=== PATIENT | female | born 1985 | race Caucasian/White ===

== ENCOUNTER 2019-08-13 06:25 | Emergency (ER) | payer BC, OTHER ==
[2019-08-13 06:30] VITALS: BP 139/94; PULSE 94; TEMP 98.3; BMI 36.6
--- NOTE | 2019-08-13 06:48 | PDOC ---
History of Present Illness - General Chief Complaint: Rash Stated Complaint: RASH,ITCHING Time Seen by Provider: 08/13/19 06:27 - History of Present Illness Initial Comments: 08/13/19 06:48 This otherwise healthy 33-year-old woman history of pruritic, erythematous rash of face (widely scattered), back, anterior chest, posterior thighs and forearms. Patient was awakened during the night with itching; this continued throughout the night. Patient took ibuprofen (400 mg without relief) sometime during the night. Patient states that she finished a course of amoxicillin last week but otherwise has been on no new medication. She also denies any new supplement, vitamin or new food exposure. She states that she was trying on clothes in a store yesterday (and purchased some); no previous allergy to any fiber or textile. No recent fever or acute illness. The patient took 2 tablets of Benadryl (25 mg each) just prior to presentation Patient denies any lip/tongue swelling or sensation of difficulty swallowing or breathing Denies daily medication No known allergies Non-smoker; no daily alcohol or other recreational drug use 08/13/19 06:53 Past History - Past Medical History Allergies/Adverse Reactions: Allergies Allergy/AdvReac Type Severity Reaction Status Date / Time No Known Allergies Allergy Verified 08/13/19 06:27 Home Medications: Ambulatory Orders Methylprednisolone [Medrol Dose Bradley] 4 mg PO ASDIR #21 tablet 08/13/19 COPD: No Other medical history: DENIES - Psycho Social/Smoking Cessation Hx Smoking History: Never smoked Have you smoked in the past 12 months: No Information on smoking cessation initiated: No Hx Alcohol Use: No Drug/Substance Use Hx: No Review of Systems - Review of Systems Able to Perform ROS?: Yes Comments:: 12 point review of systems is negative except for what is noted in the history of present illness *Physical Exam - Vital Signs Last Vital Signs Temp Pulse Resp BP Pulse Ox 98.3 F 94 H 18 139/94 100 08/13/19 06:28 08/13/19 06:28 08/13/19 06:28 08/13/19 06:28 08/13/19 06:28 - Physical Exam GENERAL: Adult female, alert and oriented x3, mildly anxious but in no acute distress HEAD: Normal with no signs of trauma. EYES: PERRLA, EOMI, sclera anicteric, conjunctiva clear. ENT: Ears normal, nares patent, oropharynx clear without exudates. Moist mucous membranes. No lip/tongue/uvular edema NECK: Normal range of motion, supple without lymphadenopathy, JVD, or masses. No stridor LUNGS: Breath sounds equal, clear to auscultation bilaterally. No wheezes, and no crackles. HEART:Regular rate and rhythm, normal S1 and S2 without murmur, rub or gallop. ABDOMEN:.normal bowel sounds No guarding,tenderness or rebound.No masses No distention. NEUROLOGICAL: Cranial nerves II through XII grossly intact. Normal speech. No focal neurological deficits. SKIN: Erythematous maculopapular rash of back, anterior chest, dorsum of forearms and posterior thighs; rashes also widely scattered upper face; no lower face or significant neck rash present Medical Decision Making - Medical Decision Making This otherwise healthy 33-year-old woman presents with few hour history of pruritic rash consistent with urticaria involving torso and extremities with rare upper facial rash. No lip/tongue/uvula edema; no stridor or wheezing evident. She completed a course of amoxicillin last week; she has tolerated penicillin in the past. She thinks there may be a family history of penicillin allergy. No other new medication/supplement or vitamin/no new topical preparations. Exam as noted with rash consistent with urticaria Since there is no evidence of upper airway edema, will not start steroids at this time. The patient has arranged follow-up with Dr. Huffman in [facility] for 8:30 AM today. She should return to the ER immediately if she has any lip/tongue swelling or any difficulty swallowing/breathing Discharge - Discharge Information Problems reviewed: Yes Clinical Impression/Diagnosis: Urticaria Condition: Stable Disposition: HOME - Additional Discharge Information Prescriptions: Methylprednisolone [Medrol Dose Bradley] 4 mg PO ASDIR #21 tablet - Follow up/Referral Referrals: Neva Bell MD [Primary Care Provider] - Marquis Huffman MD [Non Staff, Medical] - - Patient Discharge Instructions Patient Printed Discharge Instructions: Ronald Additional Instructions: Continue antihistamine (Claritin/Zyrtec/Thao during the day; Benadryl at night) as needed for itching Can also use cool compresses and oatmeal baths for local relief If you have any lip/tongue or lower facial swelling or develop difficulty swallowing/breathing begin Medrol Dosepak and come to ER 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
== END 2019-08-13 06:50 | disposition home or self-care (01) ==
LOC: FER 06:25
DX: L50.9 Urticaria, unspecified (principal)
CPT/HCPCS: 99281-25

== ENCOUNTER 2019-08-14 22:02 | Inpatient (IN) | payer BC, OTHER ==
[2019-08-14 22:15] VITALS: BMI 36.6
--- NOTE | 2019-08-14 22:34 | PDOC ---
*Physical Exam - Vital Signs Last Vital Signs Temp Pulse Resp BP Pulse Ox 97.7 F 106 H 20 139/92 96 08/14/19 22:05 08/14/19 22:05 08/14/19 22:05 08/14/19 22:05 08/14/19 22:05 Medical Decision Making - Medical Decision Making 08/14/19 22:34 Patient seen by the advanced practice provider under my direct supervision. Ancillary testing reviewed as necessary. I agree with plan as outlined by the advanced practice provider. Discharge - Discharge Information Problems reviewed: Yes Clinical Impression/Diagnosis: Rash and nonspecific skin eruption - Follow up/Referral Referrals: Neva Bell MD [Primary Care Provider] - - Patient Discharge Instructions - Post Discharge Activity
--- NOTE | 2019-08-14 22:37 | PDOC ---
History of Present Illness - General Chief Complaint: Allergic Reaction Stated Complaint: RASH/SENT BY PCP Time Seen by Provider: 08/14/19 22:31 - History of Present Illness Initial Comments: 08/15/19 01:11 33-year-old female complaining of rash "urticaria "for the last 2days. patient reports that she woke up with the rash.Patient was seen by [facility] yesterday and was given benadryl. patient was also seen by [facility] yesterday at 8 am advised her that this is likely viral and to continue Benadryl. Patient was seen by PCP later in the afternoon yesterday who gave her IM Decadron. reports after getting home patient noted increased swelling to hand and puffiness to both eyes. Denies respiratory symptoms, lip swelling, uvula swelling, throat pain, hives. Patient denies nausea, vomiting, diarrhea. Patient reports that 2 days ago she was trying on clothes at a store. Denies exposure to any known allergens Patient was send by PCP for evaluation 08/15/19 01:15 Past History - Past Medical History Allergies/Adverse Reactions: Allergies Allergy/AdvReac Type Severity Reaction Status Date / Time No Known Allergies Allergy Verified 08/13/19 06:27 Home Medications: Ambulatory Orders NK [No Known Home Medication] 08/15/19 COPD: No - Psycho Social/Smoking Cessation Hx Smoking History: Never smoked Have you smoked in the past 12 months: No Hx Alcohol Use: No Drug/Substance Use Hx: No Review of Systems - Review of Systems Able to Perform ROS?: Yes Is the patient limited Irish proficient: No Integumentary: Yes: Rash *Physical Exam - Vital Signs Last Vital Signs Temp Pulse Resp BP Pulse Ox 97.7 F 106 H 20 139/92 96 08/14/19 22:05 08/14/19 22:05 08/14/19 22:05 08/14/19 22:05 08/14/19 22:05 - Physical Exam General Appearance: Yes: Appropriately Dressed HEENT: positive: Other (uvula midline, no orlal swelling) Respiratory/Chest: positive: Lungs Clear, Normal Breath Sounds. negative: Wheezing Cardiovascular: positive: Regular Rhythm, Regular Rate Gastrointestinal/Abdominal: positive: Normal Bowel Sounds, Soft. negative: Tender Integumentary: positive: Normal Color, Dry, Warm, Other (urticaria, slight periorbital swelling bilaterally) Neurologic: positive: Fully Oriented, Alert ED Treatment Course - LABORATORY CBC & Chemistry Diagram: 08/15/19 00:15 08/14/19 23:30 ED Progress Note - Progress Note Progress Note: 08/15/19 02:50 A: urticaria P: cbc: leukocytosis bmp EKG chest xray admit Medical Decision Making - Medical Decision Making 08/15/19 01:[address] Kenny Bell. recommends admission for close monitoring and further inpatient workup and steroids. Discharge - Discharge Information Problems reviewed: Yes Clinical Impression/Diagnosis: Rash and nonspecific skin eruption Leukocytosis, unspecified Qualifiers: Leukocytosis type: unspecified Qualified Code(s): D72.829 - Elevated white blood cell count, unspecified - Admission Yes - Follow up/Referral - Patient Discharge Instructions - Post Discharge Activity
[2019-08-14 23:44] LABS: URINE APPEARANCE CLEAR; URINE BILIRUBIN NEGATIVE (NEGATIVE); URINE COLOR YELLOW; URINE GLUCOSE (UA) NEGATIVE (NEGATIVE); URINE KETONE NEGATIVE (NEGATIVE); URINE LEUK ESTERASE NEGATIVE (NEGATIVE); URINE NITRITE NEGATIVE (NEGATIVE); URINE PROTEIN NEGATIVE (NEGATIVE); URINE UROBILINOGEN 0.2 mg/dL (0.2-1.0)
[2019-08-15 00:33] LABS: BLOOD UREA NITROGEN 12.2 mg/dL (7-18); CREATININE 0.7 mg/dL (0.55-1.3)
[2019-08-15 00:34] LABS: POTASSIUM 4.5 mmol/L (3.5-5.1)
[2019-08-15 00:47] LABS: BASO % 0.4 % (0-2.0); HEMATOCRIT 40.8 % (32.4-45.2); HEMOGLOBIN 13.6 GM/dL (10.7-15.3); LYMPH % 8.3 % (8-40); MCHC 33.5 g/dl (32.0-36.0); MEAN CELL VOLUME 80.7 fl (80-96); MEAN PLT VOLUME 7.7 fl (7.5-11.1); MONO % 2.1 % (3.8-10.2); NEUT % 89.2 % (42.8-82.8); PLATELET COUNT 450 K/MM3 (134-434); RBC 5.05 M/mm3 (3.60-5.2); RDW 13.7 % (11.6-15.6); WHITE BLOOD COUNT 18.3 K/mm3 (4.0-10.0)
--- NOTE | 2019-08-15 02:20 | HP ---
CHIEF COMPLAINT: rash started 2 days ago to face, hands, lower back and legs PCP:Dr. Escalante HISTORY OF PRESENT ILLNESS: 33-year-old female with no past medical history who presents complaining of rash "urticaria for the past 2 days. She reported she woke up with the rash and was seen by [facility] yesterday and she was given oral benadryl. Patient was also seen by [facility] yesterday at 8 am and advised that this is likely viral and to continue with Benadryl. Patient was seen by PCP later in the afternoon yesterday who gave her IM Decadron and prescribed oral methyprednisolone and she took one pill. Patient reports after getting home she noted increased swelling to hand and puffiness to both eyes. She denied respiratory symptoms, lip/uvula swelling, throat pain, or hives. Patient denied nausea, vomiting, or diarrhea. Patient reports that 2 days ago she was trying on clothes at a store. She denied exposure to any known allergens and has NKA. Upon evaluation in the ER WBC is 18,000 with elevated neutrophils of 89.2 and decreased monocytes. ESR is 23 and C-reactive protien is 0.8 Recent Travel:no PAST MEDICAL HISTORY:none PAST SURGICAL HISTORY:none Social History: Smoking:no Alcohol:no Drugs: no Allergies No Known Allergies Allergy (Verified 08/13/19 06:27) HOME MEDICATIONS: Home Medications Medication Instructions Recorded NK [No Known Home Medication] 08/15/19 REVIEW OF SYSTEMS CONSTITUTIONAL: Absent: fever, chills, diaphoresis, generalized weakness, malaise, loss of appetite, weight change HEENT: Absent: rhinorrhea, nasal congestion, throat pain, throat swelling, difficulty swallowing, mouth swelling, ear pain, eye pain, visual changes CARDIOVASCULAR: Absent: chest pain, syncope, palpitations, irregular heart rate, lightheadedness , peripheral edema RESPIRATORY: Absent: cough, shortness of breath, dyspnea with exertion, orthopnea, wheezing, stridor, hemoptysis GASTROINTESTINAL: Absent: abdominal pain, abdominal distension, nausea, vomiting, diarrhea, constipation, melena, hematochezia GENITOURINARY: Absent: dysuria, frequency, urgency, hesitancy, hematuria, flank pain, genital pain MUSCULOSKELETAL: Absent: myalgia, arthralgia, joint swelling, back pain, neck pain SKIN: Absent: rash, itching, pallor HEMATOLOGIC/IMMUNOLOGIC: Absent: easy bleeding, easy bruising, lymphadenopathy, frequent infections ENDOCRINE: Absent: unexplained weight gain, unexplained weight loss, heat intolerance, cold intolerance NEUROLOGIC: Absent: headache, focal weakness or paresthesias, dizziness, unsteady gait, seizure, mental status changes, bladder or bowel incontinence PSYCHIATRIC: Absent: anxiety, depression, suicidal or homicidal ideation, hallucinations. PHYSICAL EXAMINATION Vital Signs - 24 hr 08/14/19 08/15/19 08/15/19 22:05 00:48 01:39 Temperature 97.7 F Pulse Rate 106 H Respiratory 20 Rate Blood Pressure 139/92 O2 Sat by Pulse 96 99 99 Oximetry (%) GENERAL: awake alert and fully oriented no acute distress. HEAD: normal EYES: pupils equal, round and reactive to light, extraocular movements intact EARS, NOSE, THROAT: Ears normal, nares patent, oropharynx clear without exudates. Moist mucous membranes. NECK: normal LUNGS: breath sounds equal, clear to auscultation bilaterally no wheezes no crackles no accessory muscle use. HEART: regular rate and rhythm normal S1 and S2 ABDOMEN: soft nontender not distended normoactive bowel sounds MUSCULOSKELETAL: normal range of motion at all joints UPPER EXTREMITIES: 2+ pulses, warm well-perfused no cyanosis.puffy hands with redness LOWER EXTREMITIES: no pitting edema redness present NEUROLOGICAL: normal speech no neuro deficts PSYCHIATRIC: cooperative good eye contact anxious SKIN:+ scattered raised rash to lower back, redness to face and both hands and legs Laboratory Results - last 24 hr 08/14/19 08/14/19 08/14/19 23:27 23:27 23:30 WBC Corrected WBC (auto) RBC Hgb Hct MCV MCH MCHC RDW Plt Count MPV Absolute Neuts (auto) Absolute Lymphs (auto) Absolute Monos (auto) Absolute Eos (auto) Absolute Basos (auto) Add Manual Diff Neutrophils % Lymphocytes % Monocytes % Eosinophils % Basophils % Nucleated RBC % Platelet Estimate Platelet Comment Normal RBC Morphology ESR Sodium 139 Potassium 4.5 Chloride 106 Carbon Dioxide 23 Anion Gap 10 BUN 12.2 Creatinine 0.7 Est GFR (CKD-EPI)AfAm 131.94 Est GFR (CKD-EPI)NonAf 113.84 Random Glucose 118 H Calcium 10.0 C-Reactive Protein 0.8 H Urine Color Yellow Urine Appearance Clear Urine pH 5.0 Ur Specific [place] 1.006 L Urine Protein Negative Urine Glucose (UA) Negative Urine Ketones Negative Urine Blood Negative Urine Nitrite Negative Urine Bilirubin Negative Urine Urobilinogen 0.2 Ur Leukocyte Esterase Negative Urine HCG, Qual Negative 08/14/19 08/15/19 08/15/19 23:30 00:15 00:15 WBC Cancelled Corrected WBC (auto) Cancelled RBC Cancelled Hgb Cancelled Hct Cancelled MCV Cancelled MCH Cancelled MCHC Cancelled RDW Cancelled Plt Count Cancelled MPV Cancelled Absolute Neuts (auto) Cancelled Absolute Lymphs (auto) Cancelled Absolute Monos (auto) Cancelled Absolute Eos (auto) Cancelled Absolute Basos (auto) Cancelled Add Manual Diff Cancelled Neutrophils % Cancelled Lymphocytes % Cancelled Monocytes % Cancelled Eosinophils % Cancelled Basophils % Cancelled Nucleated RBC % Cancelled Platelet Estimate Cancelled Platelet Comment Cancelled Normal RBC Morphology Cancelled ESR Cancelled 23 H Sodium Potassium Chloride Carbon Dioxide Anion Gap BUN Creatinine Est GFR (CKD-EPI)AfAm Est GFR (CKD-EPI)NonAf Random Glucose Calcium C-Reactive Protein Cancelled Urine Color Urine Appearance Urine pH Ur Specific [place] Urine Protein Urine Glucose (UA) Urine Ketones Urine Blood Urine Nitrite Urine Bilirubin Urine Urobilinogen Ur Leukocyte Esterase Urine HCG, Qual 08/15/19 00:15 WBC 18.3 H Corrected WBC (auto) RBC 5.05 Hgb 13.6 Hct 40.8 MCV 80.7 MCH 27.0 MCHC 33.5 RDW 13.7 Plt Count 450 H MPV 7.7 Absolute Neuts (auto) 16.3 H Absolute Lymphs (auto) Absolute Monos (auto) Absolute Eos (auto) Absolute Basos (auto) Add Manual Diff Neutrophils % 89.2 H Lymphocytes % 8.3 Monocytes % 2.1 L Eosinophils % 0.0 Basophils % 0.4 Nucleated RBC % 0 Platelet Estimate Platelet Comment Normal RBC Morphology ESR Sodium Potassium Chloride Carbon Dioxide Anion Gap BUN Creatinine Est GFR (CKD-EPI)AfAm Est GFR (CKD-EPI)NonAf Random Glucose Calcium C-Reactive Protein Urine Color Urine Appearance Urine pH Ur Specific [place] Urine Protein Urine Glucose (UA) Urine Ketones Urine Blood Urine Nitrite Urine Bilirubin Urine Urobilinogen Ur Leukocyte Esterase Urine HCG, Qual ASSESSMENT/PLAN: 33-year-old female with no past medical history who presents complaining of rash that she was awoken to 2 days ago and with no improvement with oral benadryl, IM Decadron and oral methyprednisolone. Dr. Bell recommended admission to Medicine for close monitoring and further inpatient workup and IV steroids. #1 Urticaria(unknown etiology) WBC elevated likely due to steroids, currently afebrile , ESR and C-reactive protein elevated --Continue w/ benadryl 25mg q6hr prn --Start IV methyprednisolone 40mg every 6hrs --Infectious Diseases Dr. Riggs consulted --Dermatology - Dr. Coyne consulted --Monitor respiratory status/ throat/lip swelling for anaphylactic shock Visit type - Emergency Visit Emergency Visit: Yes ED Registration Date: 08/15/19 Care time: The patient presented to the Emergency Department on the above date and was hospitalized for further evaluation of their emergent condition. - New Patient This patient is new to me today: Yes Date on this admission: 08/15/19 - Critical Care Critical Care patient: No
[2019-08-15] MEDS ORDERED: methylPREDNISolone NA SUCC 40 MG/1 ML VIAL IVPUSH SCH ×2 (03:00→09:41)
[2019-08-15] MEDS ORDERED: methylPREDNISolone NA SUCC 40 MG/1 ML VIAL ONE ×3 (03:59→12:08)
[2019-08-15] MEDS ORDERED: diphenhydrAMINE HCL 25 MG CAPSULE (FP) PO ONE ×4 (03:59→16:02)
[2019-08-15] MEDS: diphenhydrAMINE HCL 25 MG CAPSULE (FP) PO ONE ×2 (04:03→04:24)
[2019-08-15] MEDS: methylPREDNISolone NA SUCC 40 MG/1 ML VIAL IVPUSH SCH ×4 (06:15→18:05)
[2019-08-15 06:49] LABS: BASO % 0.1 % (0-2.0); HEMATOCRIT 36.9 % (32.4-45.2); HEMOGLOBIN 12.4 GM/dL (10.7-15.3); LYMPH % 13.6 % (8-40); MCHC 33.7 g/dl (32.0-36.0); MEAN CELL VOLUME 80.1 fl (80-96); MEAN PLT VOLUME 7.6 fl (7.5-11.1); MONO % 5.4 % (3.8-10.2); NEUT % 80.9 % (42.8-82.8); PLATELET COUNT 401 K/MM3 (134-434); RDW 13.5 % (11.6-15.6); WHITE BLOOD COUNT 17.8 K/mm3 (4.0-10.0)
[2019-08-15 07:18] LABS: BLOOD UREA NITROGEN 15.4 mg/dL (7-18); CALCIUM 9.4 mg/dL (8.5-10.1); CREATININE 0.5 mg/dL (0.55-1.3); POTASSIUM 3.8 mmol/L (3.5-5.1)
--- NOTE | 2019-08-15 08:52 | PN ---
Progress Note, Physician - Current Medication List Current Medications: Active Medications Diphenhydramine HCl (Benadryl -) 25 mg PO Q6H PRN PRN Reason: FOR ITCHING Methylprednisolone Sodium Succinate (Solu-Medrol -) 40 mg IVPUSH Q6H-IV HOSEA Last Admin: 08/15/19 06:15 Dose: 40 mg - Objective Vital Signs: Vital Signs Temperature 98.2 F 08/15/19 06:53 Pulse Rate 90 08/15/19 06:53 Respiratory Rate 18 08/15/19 06:53 Blood Pressure 133/82 08/15/19 06:53 O2 Sat by Pulse Oximetry (%) 96 08/15/19 06:53 Cardiovascular: Yes: Regular Rate and Rhythm, S1, S2 Respiratory: Yes: Regular, CTA Bilaterally Gastrointestinal: Yes: Normal Bowel Sounds, Soft. No: Tenderness Edema: No Integumentary: Yes: Rash, Other (HIVES) Neurological: Yes: Alert, Oriented Labs: CBC, BMP 08/15/19 05:55 08/15/19 05:55 Problem List - Problems (1) Urticaria Assessment/Plan: maybe due to food allergy(shrimp),Delayed Amox r/o other etiologies doubt infectious etiology Code(s): L50.9 - URTICARIA, UNSPECIFIED (2) Leukocytosis, unspecified Code(s): D72.829 - ELEVATED WHITE BLOOD CELL COUNT, UNSPECIFIED Qualifiers: Leukocytosis type: unspecified Qualified Code(s): D72.829 - Elevated white blood cell count, unspecified
--- NOTE | 2019-08-15 09:59 | EKG ---
Test Reason : Blood Pressure : / mmHG Vent. Rate : 097 BPM Atrial Rate : 097 BPM P-R Int : 166 ms QRS Dur : 092 ms QT Int : 366 ms P-R-T Axes : 040 075 046 degrees QTc Int : 464 ms NORMAL SINUS RHYTHM T WAVE ABNORMALITY, CONSIDER ANTEROLATERAL ISCHEMIA ABNORMAL ECG NO PREVIOUS ECGS AVAILABLE Confirmed by DRAGAN LEE MD ([id number]) on 08/15/2019 9:59:01 AM Referred By: Confirmed By:DRAGAN LEE MD
[2019-08-15] MEDS: diphenhydrAMINE HCL 25 MG CAPSULE (FP) PO PRN ×2 (10:08→16:12)
[2019-08-15 12:23] VITALS: TEMP 97.8
--- NOTE | 2019-08-15 12:49 | PN ---
Progress Note (short form) - Note Progress Note: ID CONSULT DICTATED PROBABLE ALLERGIC RXN ? AGENT ? VIRAL INFECTION OBTAIN VIRAL SEROLOGIES NO OBJECTION TO STEROIDS/ BENADRYL NO ANTIBIOTICS OUTPATIENT F/U DISCUSSED WITH FAMILY IN ATTENDANCE
--- NOTE | 2019-08-15 16:18 | DS ---
Physical Examination Vital Signs: Vital Signs Temperature 97.8 F 08/15/19 12:21 Pulse Rate 99 H 08/15/19 12:21 Respiratory Rate 20 08/15/19 12:21 Blood Pressure 121/80 08/15/19 12:21 O2 Sat by Pulse Oximetry (%) 97 08/15/19 12:21 Labs: CBC, BMP 08/15/19 05:55 08/15/19 05:55 Discharge Summary Problems reviewed: Yes Reason For Visit: URTICARIA, RASH Current Active Problems Leukocytosis, unspecified (Acute) Rash and nonspecific skin eruption (Acute) - Instructions Referrals: Neva Bell MD [Primary Care Provider] - 08/17/19 - Home Medications Comprehensive Discharge Medication List: Ambulatory Orders Diphenhydramine HCl [Benadryl Capsule -] 25 mg PO Q6H PRN capsule 08/15/19 Epinephrine [Epipen 2-Bradley] 0.3 mg IJ ASDIR #1 kit 08/15/19 predniSONE [Deltasone -] 40 mg PO BID #100 tab 08/15/19
[2019-08-15 16:33] VITALS: BP 124/82; PULSE 89
[2019-08-15] MEDS ORDERED: PT OWN MED DRAWER 7, Y5N ONE (17:53)
[2019-08-17 15:08] LABS: EPSTEIN BARR ANTIBODY IgM <36.0 U/mL (0.0-35.9)
[2019-08-17 16:11] LABS: PARV B19 IGG 7.2 index (0.0-0.8); PARV B19 IGM 0.2 index (0.0-0.8)
[2019-08-17 20:07] LABS: D001 D PTERONYSSINUS <0.10 kU/L (Class 0); D002 D FARINAE MITE <0.10 kU/L (Class 0); E005 DOG HAIR/DANDER <0.10 kU/L (Class 0); F001 EGG WHITE <0.10 kU/L (Class 0); F018 BRAZIL NUT < 0.10 kU/L (Class 0); F201 PECAN NUT < 0.10 kU/L (Class 0); M006-ALTERNARIA <0.10 kU/L (Class 0)
== END 2019-08-15 18:23 | disposition home or self-care (01) | DRG 607 ==
LOC: JER 22:02 → JERBED 08-15 01:21 → UNDOADMOB 08-15 01:21 → INTOOBSV 08-15 01:21 → JERBED 08-15 02:03 → OBSVTOIN 08-15 03:32
PROVIDERS: ADMIT Family Medicine; ATTEND Family Medicine
DX: L50.0 Allergic urticaria (principal); L27.2 Dermatitis due to ingested food; D72.829 Elevated white blood cell count, unspecified
CPT/HCPCS: 36415; 71046-TC-FY; 80048; 81003; 84439; 84443; 84481; 84703; 85025; 85651; 86003; 86038; 86140; 86308; 86664; 86665; 86747; 93005; 93010; 99285-25; G0378